=== PATIENT | female | born 1980 | race Asian ===

== ENCOUNTER 2016-12-04 13:42 | Outpatient (CLI) | payer OTHER ==
[~2016-12-04 13:42] MED LIST: MULTIVITAMIN1 TA1 PO
== END 2016-12-04 20:03 | disposition home or self-care (01) ==
LOC: MLB 13:42
DX: R07.9 Chest pain, unspecified (principal); I49.9 Cardiac arrhythmia, unspecified; E03.9 Hypothyroidism, unspecified; I10 Essential (primary) hypertension

== ENCOUNTER 2017-03-08 06:28 | Emergency (ER) | payer OTHER ==
[~2017-03-08] VITALS: Ht 162.6 cm; Wt 56.7 kg
[~2017-03-08 06:28] MED LIST changes: +MULT-298 PO; -MULTIVITAMIN1 TA1 PO
[2017-03-08 06:38] VITALS: BP 129/90
--- NOTE | 2017-03-08 06:46 | NUR ---
PT TAKEN TO BED 7
--- NOTE | 2017-03-08 06:47 | NUR ---
Dr. Wolfe evaluating patient at bedside.
[2017-03-08] MEDS ORDERED: LIDOCAINE 1% ED 50 ML ONE (06:51)
[2017-03-08] MEDS ORDERED: CLINDAMYCIN 150 MG CAP PO ONE (06:55)
[2017-03-08 07:00] VITALS: BP 129/90
--- NOTE | 2017-03-08 07:00 | NUR ---
Patient discharged with v/s stable. Written and verbal after care instructions given and explained. Patient alert, oriented and verbalized understanding of instructions. Ambulatory with steady gait. All questions addressed prior to discharge. ID band removed. Patient advised to follow up with PMD. Rx of Cleocin given. Patient educated on indication of medication including possible reaction and side effects. Opportunity to ask questions provided and answered.
[2017-03-08] MEDS ORDERED: NEOMYCIN/POLYMYXIN/BACITRACIN 0.9 GM/1 PKT TP ONE (07:02)
== END 2017-03-08 07:00 | disposition home or self-care (01) ==
LOC: MED 06:28
DX: L02.01 Cutaneous abscess of face (principal); R03.0 Elevated blood-pressure reading, without diagnosis of hypertension
CPT/HCPCS: 10060; 99283; J2001